=== PATIENT | female | born 1995 | race Caucasian/White ===

== ENCOUNTER 2016-09-08 20:08 | Emergency (ER) | payer OTHER ==
[~2016-09-08 20:08] MED LIST: CIPRO500 MG PO; FLO4 PO; ZOF4 PO
[2016-09-08 21:08] VITALS: BP 120/87
== END 2016-09-08 21:08 | disposition home or self-care (01) ==
LOC: ED 20:08
DX: S80.02XA Contusion of left knee, initial encounter (principal); N39.0 Urinary tract infection, site not specified; Z88.5 Allergy status to narcotic agent; V87.8XXA Person injured in other specified noncollision transport accidents involving motor vehicle (traffic), initial encounter; Y93.89 Activity, other specified; Y92.89 Other specified places as the place of occurrence of the external cause; Y99.8 Other external cause status
CPT/HCPCS: 87491; 87591